=== PATIENT | male | born 1990 | race Caucasian/White ===

== ENCOUNTER 2022-04-30 06:42 | Day surgery (SDC) | payer OTHER ==
[~2022-04-30] VITALS: Ht 177.8 cm; Wt 97.9 kg
[2022-04-30 07:35] VITALS: BP 141/90; PULSE 85; TEMP 98.1
[2022-04-30] MEDS ORDERED: LEVAQUIN 5500 MG/TA1 PO (08:16)
[2022-04-30] MEDS ORDERED: CIALIS5 MG PO (08:17)
[2022-04-30] MEDS ORDERED: NORVASC 10MG10 MG PO (08:17)
[2022-04-30] MEDS ORDERED: LOTREL 10 MG-201 CAP PO (08:18)
[2022-04-30] MEDS ORDERED: PRIL40 PO (08:19)
[2022-04-30 09:46] VITALS: BP 108/68; PULSE 77; TEMP 97.8
[2022-04-30 10:01] VITALS: BP 105/65; PULSE 73
[2022-04-30 10:16] VITALS: BP 103/80; PULSE 84
[2022-04-30 10:31] VITALS: BP 125/92; PULSE 73
--- NOTE | 2022-04-30 10:57 | NUR ---
PATIENT HAS MET ALL CRITERIA FOR DISCHARGE. IV SITE D/C'D. DISCHARGE INSTRUCTIONS GIVEN WITH VERBAL UNDERSTANDING. TIME GIVEN TO GET DRESSED AND ASSIST TO WHEELCHAIR. DISMISSED WITH FRIEND TO HOME IN STABLE CONDITION. INSTRUCED TO REMAIN NON-WEIGHT BEARING.
--- NOTE | 2022-04-30 11:47 | NUR ---
PATIENT RETURNS TO ROOM 8 ON CART, SLEEPY. IV FLUIDS CONTINUE TO INFUSE AT TKO. VS MONITOR ON. HOB ELEVATED. HAS POST OP SHOE TO RIGHT FOOT. DRESSING CLEAN, DRY AND INTACT.
--- NOTE | 2022-04-30 11:56 | NUR ---
PATIENT AWAKE AND ASKING FOR SOMETHING TO DRINK. PEPSI AND MUFFIN GIVEN. FRIEND AT BEDSIDE.
--- NOTE | 2022-04-30 12:00 | NUR ---
PATIENT AWAKE AND VISITING WITH FRIEND. DENIES ANY PAIN. HAS POSTOP SHOE TO RIGHT FOOT ON. CONTINUES TO MONITOR VS.
== END 2022-04-30 12:20 | disposition home or self-care (01) ==
LOC: SDCO 06:42
DX: T84.84XA Pain due to internal orthopedic prosthetic devices, implants and grafts, initial encounter (principal); M21.611 Bunion of right foot; I10 Essential (primary) hypertension; K21.9 Gastro-esophageal reflux disease without esophagitis; F17.210 Nicotine dependence, cigarettes, uncomplicated; Z79.899 Other long term (current) drug therapy; Y79.2 Prosthetic and other implants, materials and accessory orthopedic devices associated with adverse incidents
CPT/HCPCS: C1713; J0690; J2250; J2704; J3010; J7120